=== PATIENT | female | born 1995 | race Native Hawaiian/Other Pacific Islander ===

== ENCOUNTER 2021-11-24 18:28 | Emergency (ER) | payer OTHER ==
[~2021-11-24] VITALS: Ht 154.9 cm; Wt 63.5 kg
[2021-11-24 18:33] VITALS: TEMP 98.5
[2021-11-24 19:40] VITALS: BP 120/76
== END 2021-11-24 19:40 | disposition home or self-care (01) ==
LOC: ED 18:28
DX: S01.04XA Puncture wound with foreign body of scalp, initial encounter (principal); W45.8XXA Other foreign body or object entering through skin, initial encounter; W26.8XXA Contact with other sharp object(s), not elsewhere classified, initial encounter; Y93.89 Activity, other specified; Y92.89 Other specified places as the place of occurrence of the external cause
CPT/HCPCS: 90471; 90715; 96372; 99283; J0690; J1885; J2001; J7040